=== PATIENT | male | born 1980 | race Caucasian/White ===

== ENCOUNTER 2022-03-01 10:37 | Day surgery (SDC) | payer OTHER ==
[~2022-03-01] VITALS: Ht 177.8 cm; Wt 78.8 kg
--- NOTE | 2022-03-01 11:12 | NUR ---
03/01/22 1112 Nafisa Lobato:[id number], KVNG: 1110
== END 2022-03-01 12:38 | disposition home or self-care (01) ==
LOC: ORSCSDS 10:37
PROVIDERS: Ophthalmology
PROC: 08RK3JZ Replacement of Left Lens with Synthetic Substitute, Percutaneous Approach (ICD-10-PCS; principal; 2022-03-01 12:00)
DX: H25.12 Age-related nuclear cataract, left eye (principal)
CPT/HCPCS: J2001; J2250; J3010; J3301; J7040; V2632

== ENCOUNTER 2023-02-05 19:53 | Emergency (ER) | payer OTHER ==
[~2023-02-05] VITALS: Ht 177.8 cm; Wt 74.8 kg
[2023-02-05 20:03] VITALS: BP 137/107
[2023-02-05] MEDS ORDERED: AMOCLA875 PO (20:46)
== END 2023-02-05 20:50 | disposition home or self-care (01) ==
LOC: ER 19:53
DX: S01.452A Open bite of left cheek and temporomandibular area, initial encounter (principal); W54.0XXA Bitten by dog, initial encounter; Z23 Encounter for immunization
CPT/HCPCS: 12011; 90471; 90714; 99283-25; A9270

== ENCOUNTER 2023-07-16 22:21 | Emergency (ER) | payer OTHER ==
[~2023-07-16] VITALS: Ht 177.8 cm; Wt 79.4 kg
[~2023-07-16 22:21] MED LIST: AMOCLA875 PO
[2023-07-16 22:27] VITALS: BP 134/81
[2023-07-17] MEDS ORDERED: AMOCLA875 PO (00:28)
== END 2023-07-17 00:42 | disposition home or self-care (01) ==
LOC: ER 22:21
DX: S61.214A Laceration without foreign body of right ring finger without damage to nail, initial encounter (principal); S50.812A Abrasion of left forearm, initial encounter; W54.0XXA Bitten by dog, initial encounter
CPT/HCPCS: 73090; 73140; 99283-25; A9270